=== PATIENT | female | born 1940 | race African-American/Black ===

== ENCOUNTER 2017-01-09 14:08 | Emergency (ER) | payer OTHER, MEDICARE ==
[2017-01-09 14:16] VITALS: PULSE 89; TEMP 97.9; BMI 25.7
--- NOTE | 2017-01-09 14:25 | PDOC ---
History of Present Illness <Emeli Brice - Last Filed: 01/09/17 15:29> - History of Present Illness Initial Comments: 01/09/17 14:51 "The patient is a 76 year old female, with a significant past medical history of hyperlipidemia, who presents to the emergency department s/p mechanical fall approximately 3-4 days ago. The patient reports she was getting out of bed when her left knee hit her bed post and she landed on her buttocks. Patient denies any changes in vision, headache, LOC, neck or back pain. Patient reports she was able to ambulate the first couple of days, but at a slower pace than normal and occasionally hopping due to left knee pain. Patient reports using a heat pad with mild relief. However, today, patient reports noting increased swelling and pain at the left knee. She describes her knee pain as sharp/ constant and rates it a 15/10. Patient reports her knee pain is exacerbated if she bares weight on her left leg. She reports she has noted left calf cramping s/p fall. Patient reports taking 2 baby aspirin today with minimal relief of pain. She denies any fever, chills, or dizziness. She denies any chest pain, shortness of breath, diaphoresis, or palpitations. She denies any recent travel or sick contacts. Patient is not on any blood thinners. Allergies: NKDA Past Surgical History: None reported Social History: Non smoker. No ETOH or recreational drug use. PCP: Dr. Gregg " <Wolfgang Claire - Last Filed: 01/09/17 15:55> - General Chief Complaint: Injury Stated Complaint: LEFT KNEE PAIN Time Seen by Provider: 01/09/17 14:12 Past History <Emeli Brice - Last Filed: 01/09/17 15:29> - Past Medical History Anemia: No Asthma: No Cancer: No Cardiac Disorders: No CVA: No COPD: No CHF: No Dementia: No Diabetes: No GI Disorders: No Disorders: No HTN: No Hypercholesterolemia: Yes Kidney Stones: No Liver Disease: No Suicide Attempt (Hx): No Seizures: No Thyroid Disease: No - Surgical History Abdominal Surgery: No Appendectomy: No Cardiac Surgery: No Cholecystectomy: No Lung Surgery: No Neurologic Surgery: No Orthopedic Surgery: No - Reproductive History PID: No - Psycho/Social/Smoking Cessation Hx Anxiety: No Suicidal Ideation: No Smoking History: Never smoked Have you smoked in the past 12 months: No Information on smoking cessation initiated: No Hx Alcohol Use: No Drug/Substance Use Hx: No Substance Use Type: None Hx Substance Use Treatment: No <Wolfgang Claire - Last Filed: 01/09/17 15:55> - Past Medical History Allergies/Adverse Reactions: Allergies Allergy/AdvReac Type Severity Reaction Status Date / Time No Known Allergies Allergy Verified 01/09/17 14:12 Home Medications: Ambulatory Orders Aspirin Coated [Ecotrin -] 81 mg PO DAILY 03/11/15 Simvastatin [Zocor -] 40 mg PO HS 03/11/15 Review of Systems - Review of Systems Comments:: 01/09/17 14:52 "GENERAL/CONSTITUTIONAL: No fever or chills. No weakness. HEAD, EYES, EARS, NOSE AND THROAT: No change in vision. No ear pain or discharge. No sore throat. CARDIOVASCULAR: No chest pain or shortness of breath. RESPIRATORY: No cough, wheezing, or hemoptysis. GASTROINTESTINAL: No nausea, vomiting, diarrhea or constipation. GENITOURINARY: No dysuria, frequency, or change in urination. MUSCULOSKELETAL: Yes: left knee pain s/p fall with associated swelling. No other joint or muscle swelling or pain. No neck or back pain. SKIN: No rash NEUROLOGIC: No headache, vertigo, loss of consciousness, or change in strength/ sensation. ENDOCRINE: No increased thirst. No abnormal weight change. HEMATOLOGIC/LYMPHATIC: No anemia, easy bleeding, or history of blood clots. ALLERGIC/IMMUNOLOGIC: No hives or skin allergy." <Wolfgang Claire - Last Filed: 01/09/17 15:55> *Physical Exam - Vital Signs Last Vital Signs Temp Pulse Resp BP Pulse Ox 97.9 F 89 18 149/66 99 01/09/17 14:11 01/09/17 14:11 01/09/17 14:11 01/09/17 14:11 01/09/17 14:11 <Emeli Brice - Last Filed: 01/09/17 15:29> - Vital Signs Last Vital Signs Temp Pulse Resp BP Pulse Ox 97.9 F 89 18 0/0 01/09/17 14:11 01/09/17 14:11 01/09/17 14:11 01/09/17 14:11 - Physical Exam Comments: 01/09/17 14:52 "GENERAL: Awake, alert, and fully oriented, in no acute distress HEAD: No signs of trauma EYES: PERRLA, EOMI, sclera anicteric, conjunctiva clear ENT: Auricles normal inspection, hearing grossly normal, nares patent, oropharynx clear without exudates. Moist mucosa NECK: Normal ROM, supple, no lymphadenopathy, JVD, or masses LUNGS: Breath sounds equal, clear to auscultation bilaterally. No wheezes, and no crackles HEART: Regular rate and rhythm, normal S1 and S2, no murmurs, rubs or gallops ABDOMEN: Soft, nontender, normoactive bowel sounds. No guarding, no rebound. No masses EXTREMITIES: Left knee with large joint effusion. Full passive range of motion. Active range of motion limited due to pain. Tenderness over the left patella. Negative anterior drawer test. Distal pulses intact. No clubbing or cyanosis. No cords, erythema, or tenderness NEUROLOGICAL: Cranial nerves II through XII grossly intact. Normal speech, normal gait SKIN: Warm, Dry, normal turgor, no rashes or lesions noted." <Wolfgang Claire - Last Filed: 01/09/17 15:55> ED Treatment Course - RADIOLOGY Radiograph Interpretation: 01/09/17 15:30 EXAM: Left tibia/fibula INTERPRETED BY: Dr. Corbin REVIEWED BY: Dr. Claire IMPRESSION: Left tibia/fibula: There is osteopenia. No acute fracture or dislocation is seen. There is a plantar calcaneal spur. Left knee: There is mild narrowing of the medial compartment. Tricompartmental osteophytes and intercondylar notch spurs are present. There are moderate to advanced degenerative changes of the patellofemoral joint and there is lateral tilt of the patella. No acute fracture or dislocation is seen. There is a moderate suprapatellar joint effusion. EXAM: Left tibia/fibula INTERPRETED BY: Dr. Corbin REVIEWED BY: Dr. Claire IMPRESSION: Left knee: There is mild narrowing of the medial compartment. Tricompartmental osteophytes and intercondylar notch spurs are present. There are moderate to advanced degenerative changes of the patellofemoral joint and there is lateral tilt of the patella. No acute fracture or dislocation is seen. There is a moderate suprapatellar joint effusion. - Medications Given in the ED: ED Medications Discontinued Medications Generic Name Dose Route Start Last Admin Trade Name Gisselle PRN Reason Stop Dose Admin Oxycodone/Acetaminophen 1 combo 01/09/17 14:19 01/09/17 14:27 Percocet 5/325 - PO 01/09/17 14:20 1 combo ONCE ONE Administration <Emeli Brice - Last Filed: 01/09/17 15:29> - RADIOLOGY Radiology Studies Ordered: Category Date Time Status KNEE 3 POS-LEFT [RAD] Stat Radiology 01/09/17 14:19 Ordered <Wolfgang Claire - Last Filed: 01/09/17 15:55> Medical Decision Making - Medical Decision Making 01/09/17 14:24 76 F with L knee pain and swelling s/p injury 3 days ago. Exam concerning for possible patella fx vs tibia fx. No other injuries found on exam. Although pt has asymmetric knee swelling, DVT is unlikely as pt has no h/o immobilization or travel, is not on estrogen supplements, no h/o DVT, and the swelling is localized to her knee where she injured it. - XR L knee, tib/fib - Percocet 01/09/17 15:46 XRs negative for acute fx. Pt with likely ligamentous injury to knee. - Knee immobilizer - orthopedics follow up <Wolfgang Claire - Last Filed: 01/09/17 15:55> *DC/Admit/Observation/Transfer - Attestations Scribe Attestion: 01/09/17 15:33 Documentation prepared by Emeli Brice, acting as veterinary medical officer for Wolfgang Claire MD. <Emeli Brice - Last Filed: 01/09/17 15:29> - Attestations Physician Attestion: 01/09/17 15:53 I, Dr. Wolfgang Claire MD, attest that this document has been prepared under my direction and personally reviewed by me in its entirety. I further attest, that it accurately reflects all work, treatment, procedures and medical decision -making performed by me. <Wolfgang Claire - Last Filed: 01/09/17 15:55> Diagnosis at time of Disposition: Knee pain - Discharge Dispostion Disposition: HOME Condition at time of disposition: Fair - Referrals Referrals: Wolfgang Lynn MD [Staff Physician] - - Patient Instructions Printed Discharge Instructions: DI for Knee Pain Additional Instructions: Keep your knee in the knee immobilizer until you are able to see an orthopedic surgeon. Ask your primary doctor for a referral, or call the number provided to make an appointment with our orthopedics clinic. Take tylenol or motrin as needed for pain. If you experience worsening pain, swelling, or any other concerning symptoms, return to the ER immediately.
[2017-01-09 14:34] VITALS: BP 149/66
== END 2017-01-09 16:23 | disposition home or self-care (01) ==
LOC: FER 14:08
DX: M25.562 Pain in left knee (principal); W18.30XA Fall on same level, unspecified, initial encounter; Y93.89 Activity, other specified; Y92.003 Bedroom of unspecified non-institutional (private) residence as the place of occurrence of the external cause; E78.5 Hyperlipidemia, unspecified
CPT/HCPCS: 73562-TC-LT; 73590-TC-LT; 99282-25

== ENCOUNTER 2017-10-21 16:39 | Emergency (ER) | payer OTHER, MEDICARE ==
[2017-10-21 17:06] VITALS: BMI 24.9
[2017-10-21] MEDS ORDERED: FOLIC ACID INJECTION - 1 MG, THIAMINE HCL 100 MG, MULTIVIT INJECTION ADULT 10 ML in SOD... IVPB ONE (19:41)
--- NOTE | 2017-10-21 19:48 | PDOC ---
History of Present Illness - General Chief Complaint: Palpitations Stated Complaint: Palpitations Time Seen by Provider: 10/21/17 18:49 History Source: Patient Exam Limitations: No Limitations - History of Present Illness Initial Comments: 77 YOF with h/o EtOH use who p/w tremors, malaise, palpitations, lightheadedness , nausea, decreased appetite, and unsteadiness on her feet/difficulty walking worsening since last night. She stopped drinking alcohol two days ago. She went to see her primary doctor's clinic today, where Dr. Perry was filling in for patient's PCP Dr. Floyd), and was instructed to come to the ED for possible EtOH withdrawal. The patient denies any hallucinations, SI/HI, or other symptoms. She may want detox and rehab at [facility]. Past History - Past Medical History Allergies/Adverse Reactions: Allergies Allergy/AdvReac Type Severity Reaction Status Date / Time No Known Allergies Allergy Verified 10/21/17 17:07 Home Medications: Ambulatory Orders Aspirin Coated [Ecotrin -] 81 mg PO DAILY 03/11/15 Simvastatin [Zocor -] 40 mg PO HS 03/11/15 Anemia: No Asthma: No Cancer: No Cardiac Disorders: No CVA: No COPD: No CHF: No Dementia: No Diabetes: No GI Disorders: No Disorders: No HTN: No Hypercholesterolemia: Yes Kidney Stones: No Liver Disease: No Seizures: No Thyroid Disease: No - Surgical History Abdominal Surgery: No Appendectomy: No Cardiac Surgery: No Cholecystectomy: No Lung Surgery: No Neurologic Surgery: No Orthopedic Surgery: No - Reproductive History PID: No - Suicide/Smoking/Psychosocial Hx Smoking History: Never smoked Have you smoked in the past 12 months: No Information on smoking cessation initiated: No Hx Alcohol Use: No Drug/Substance Use Hx: No Substance Use Type: Alcohol Hx Substance Use Treatment: No Review of Systems - Review of Systems Able to Perform ROS?: Yes Constitutional: Yes: Loss of Appetite, Malaise. No: Chills, Fever, Unexplained wgt Loss HEENTM: No: Nose Congestion, Throat Pain Respiratory: No: Cough, Shortness of Breath Cardiac (ROS): Yes: Lightheadedness, Palpitations. No: Chest Pain, Syncope ABD/GI: Yes: Nausea, Poor Appetite. No: Constipated, Diarrhea, Vomiting : No: Burning, Dysuria Musculoskeletal: No: Back Pain, Neck Pain Integumentary: No: Bruising, Rash Neurological: Yes: Tremors, Unsteady Gait. No: Headache, Numbness, Tingling, Weakness Endocrine: No: Unexplained Weight Gain, Unexplained Weight Loss *Physical Exam - Vital Signs Last Vital Signs Temp Pulse Resp BP Pulse Ox 98 F 88 16 189/82 98 10/21/17 16:39 10/21/17 16:39 10/21/17 16:39 10/21/17 16:39 10/21/17 16:39 - Physical Exam General Appearance: Yes: Nourished, Appropriately Dressed, Other (mild distress , visibly tremulous, appears slightly uncomfortable but answering questions appropriately and able to participate in exam and follow commands) HEENT: positive: EOMI, MELIZA, Normal Voice, Hearing Grossly Normal, Other (dry mucous membranes). negative: Scleral Icterus (R), Scleral Icterus (L), Nasal Congestion Neck: positive: Trachea midline, Normal Thyroid, Supple. negative: Tender, Rigid Respiratory/Chest: positive: Lungs Clear, Normal Breath Sounds. negative: Respiratory Distress, Crackles, Rhonchi, Stridor, Wheezing Cardiovascular: positive: Regular Rhythm, Regular Rate, S1, S2. negative: Edema , JVD, Murmur Gastrointestinal/Abdominal: positive: Normal Bowel Sounds, Flat, Soft. negative : Tender, Organomegaly, Pulsatile Mass, Guarding Musculoskeletal: positive: Normal Inspection. negative: Decreased Range of Motion, Vertebral Tenderness Extremity: positive: Normal Capillary Refill, Normal Inspection, Normal Range of Motion. negative: Tender, Cyanosis Integumentary: positive: Normal Color, Dry, Warm. negative: Erythema, Rash, Bruising Neurologic: positive: dinker II-XII NML intact, Fully Oriented, Alert, Normal Mood/ Affect, Normal Response, Motor Strength 5/5, Finger to Nose (some difficulty d/ t tremors), Other (constant fine tremor, gait not tested). negative: EOM Palsy , Facial Droop, Numbness, Sensory Deficit Procedures - Joint Reduction Right Joint Reduction Site: right: Finger (4th finger) Pre-Procedure NV Exam: slightly decreased sensation fingertip Conscious Sedation: No Finger Block: 4th digit Reduction Attempts: 1 Anesthetic: 1% Lidocaine Amount (mL): 4 Procedure: Other (traction-countertraction) Complications: No Post Joint Reduction Film: joint reduced Immobilized: Yes (alyce tape) ED Treatment Course - LABORATORY CBC & Chemistry Diagram: 10/22/17 01:10 10/21/17 20:53 Medical Decision Making - Medical Decision Making 10/21/17 20:08 Pt with h/o heavy alcohol use p/w tremors, malaise, palpitations, nausea, decreased PO intake, c/w her prior EtOH withdrawal. Initial Vital Signs Temp Pulse Resp BP Pulse Ox 98 F 88 16 189/82 98 10/21/17 16:39 10/21/17 16:39 10/21/17 16:39 10/21/17 16:39 10/21/17 16:39 Exam: tremulous, +tongue fasciculations, fixed split S1, no truncal ataxia, otherwise normal exam but gait is not tested DDX IBNLT: withdrawal (w/wo seizures), DT, hepatic encephalopathy, intoxication , ICH, UGIB (can cause AMS), LGIB, SBP, metabolic derangement, coingestion, hepatorenal syndrome, hepatopulmonary syndrome, Wernickes encephalopathy, Korsakoff syndrome, trauma, etc. W/U ordered: CBCD CMP Mg Phos Troponin CK CKMB Folate B12 EKG CXR UA UCx TX ordered: Banana Bag 1 mg IV Ativan 25 mg Librium EKG: Reviewed; results as noted in ECG Review section. Laboratory Tests 10/21/17 10/21/17 10/21/17 20:53 21:04 21:04 WBC RBC Hgb Hct MCV MCH MCHC RDW Plt Count MPV Absolute Neuts (auto) Neutrophils % Lymphocytes % Monocytes % Eosinophils % Basophils % Nucleated RBC % Sodium 132 L Potassium 5.0 Chloride 94 L Carbon Dioxide 23 Anion Gap 15 BUN 12 Creatinine 0.7 Creat Clearance w eGFR > 60 Random Glucose 93 Calcium 9.2 Phosphorus 3.8 Magnesium 2.0 Total Bilirubin 0.5 AST 42 H ALT 36 Alkaline Phosphatase 69 Creatine Kinase 133 Troponin I 0.02 Total Protein 7.9 Albumin 4.0 Vitamin B12 Serum Folate TSH Urine Color Yellow Urine Appearance Slcloudy Urine pH 5.0 D Ur Specific [place] 1.018 Urine Protein 2+ H Urine Glucose (UA) Negative Urine Ketones 2+ H Urine Blood Negative Urine Nitrite Negative Urine Bilirubin Negative Urine Urobilinogen Negative Ur Leukocyte Esterase Negative Urine WBC (Auto) 10 Urine RBC (Auto) 3 Ur Epithelial Cells Rare Granular Casts 1 Urine Mucus Rare 10/21/17 10/22/17 21:04 01:10 WBC 9.7 RBC 3.94 Hgb 12.4 Hct 36.6 MCV 93.0 MCH 31.5 MCHC 33.8 RDW 14.2 Plt Count 252 MPV 7.2 L D Absolute Neuts (auto) 6.0 Neutrophils % 62.3 Lymphocytes % 17.9 Monocytes % 16.6 H Eosinophils % 2.4 Basophils % 0.8 Nucleated RBC % 0 Sodium Potassium Chloride Carbon Dioxide Anion Gap BUN Creatinine Creat Clearance w eGFR Random Glucose Calcium Phosphorus Magnesium Total Bilirubin AST ALT Alkaline Phosphatase Creatine Kinase Troponin I Total Protein Albumin Vitamin B12 701 Serum Folate 34 H TSH 1.02 Urine Color Urine Appearance Urine pH Ur Specific [place] Urine Protein Urine Glucose (UA) Urine Ketones Urine Blood Urine Nitrite Urine Bilirubin Urine Urobilinogen Ur Leukocyte Esterase Urine WBC (Auto) Urine RBC (Auto) Ur Epithelial Cells Granular Casts Urine Mucus Reassessment: Patient states feeling much better Repeat VS: DISCHARGE The Pt has gotten significant relief of symptoms with ED medications. Workup is not concerning for emergency-level pathology at this time. The Pt is appropriate for discharge and f/u with [facility]. The patient is instructed to go to [facility] for detox at 8 am to be admitted. They are comfortable with this plan and will also follow up with their PCP COLIN. Specific return precautions are discussed and they will come back to the ER if necessary. *DC/Admit/Observation/Transfer Diagnosis at time of Disposition: Alcohol withdrawal Qualifiers: Complication of substance-induced condition: uncomplicated Qualified Code(s): F10.230 - Alcohol dependence with withdrawal, uncomplicated - Discharge Dispostion Condition at time of disposition: Stable Decision to Admit order: No - Referrals Referrals: Cindy Sanderson MD [Primary Care Provider] - - Patient Instructions Additional Instructions: You were seen in the ER for alcohol withdrawal symptoms. We did labs and found no new concerning findings. After our assessment, we do not believe you are having a medical emergency at this time, and we believe you are safe to go home. Please go to [facility] for detox this morning at 8 am. They will be able to observe you and monitor you for your withdrawal symptoms while you detox from alcohol. We are providing referral information for [facility] in this packet. Please also follow up with your regular PCP doctor in 1-3 days. Call their clinic as soon as possible, tell them you were seen in the ER, and tell them you need an appointment. If you have any new or worsening symptoms, please come back to the ER at any time (24 hours a day). If you are having severe or life threatening symptoms, or symptoms that make it unsafe to drive or have someone drive you, please call 911. Go to: [facility] [address] [place] [address] Opens at 8 am - Post Discharge Activity
--- NOTE | 2017-10-21 20:00 | PDOC ---
Attending Attestation - Resident Resident Name: Nydia Lilly - ED Attending Attestation I have performed the following: I have examined & evaluated the patient, The case was reviewed & discussed with the resident, I agree w/resident's findings & plan, Exceptions are as noted <Jose Dolan - Last Filed: 10/21/17 19:59> - HPI HPI: 10/21/17 20:26 The patient is a 77 year old female, with a significant past medical history of EtOH abuse hyperlipidemia, who presents to the emergency department with palpitations, nausea, malaise, and tremors. The patient went to her PMDs office for her symptoms and was told she may be withdrawing from alcohol and that she should present to the ED. She reports associated lightheadedness and unsteady gain. The patient reports that she has withdrawn from alcohol before but denies any history of rehab. She reports compliance with Venilifax (SNRI) She denies any hallucinations. Suicidal thoughts, and/or homicidal thoughts - Physicial Exam PE: 10/21/17 20:26 GENERAL: Well-appearing, well-nourished. No apparent distress. HEENT: Normocephalic, atraumatic. PERRL, EOM intact. CARDIOVASCULAR: (+) Fixed S1, Normal S2. Regular rate and rhythm. PULMONARY: Clear to auscultation bilaterally. ABDOMEN: Soft, non-distended, non-tender. EXTREMITIES: Normal ROM in all four extremities. No gross deformities. SKIN: Warm, dry. No rash NEUROLOGICAL: (+) Resting tremor (constant during neuro exam), Tongue fasciculation, Flaps , Some difficulty with finger to nose. Gait not tested. - Medical Decision Making 10/21/17 20:26 Documentation prepared by Clint Calix, acting as medical professionals for Jose Dolan DO. <Clint Calix - Last Filed: 10/21/17 20:26>
[2017-10-21] MEDS ORDERED: chlordiazePOXIDE HCL 25 MG CAPSULE PO ONE (20:03)
[2017-10-21] MEDS ORDERED: LORazepam 2 MG/ML SDV VIAL ONE (20:47)
[2017-10-21] MEDS ORDERED: chlordiazePOXIDE HCL 25 MG CAPSULE ONE (20:47)
[2017-10-21 21:35] LABS: URINE APPEARANCE SLCLOUDY; URINE BILIRUBIN NEGATIVE (<2.0 mg/dL); URINE COLOR YELLOW; URINE GLUCOSE (UA) NEGATIVE (NEGATIVE); URINE KETONE 2+ (NEGATIVE); URINE LEUK ESTERASE NEGATIVE (NEGATIVE); URINE NITRITE NEGATIVE (NEGATIVE); URINE PROTEIN 2+ (NEGATIVE); URINE UROBILINOGEN NEGATIVE mg/dL (0.2-1.0)
[2017-10-21 21:37] LABS: EPI CELLS RARE /HPF (FEW); GRANULAR CASTS 1 /lpf; URINE MUCUS RARE
[2017-10-22 00:44] LABS: ALK PHOS 69 U/L (45-117); ANION GAP 15 (8-16); BILIRUBIN,TOTAL 0.5 mg/dL (0.2-1.0); BLOOD UREA NITROGEN 12 mg/dL (7-18); CALCIUM 9.2 mg/dL (8.5-10.1); CHLORIDE 94 mmol/L (98-107); CO2 23 mmol/L (21-32); CREATININE 0.7 mg/dL (0.55-1.02); GLUCOSE,RANDOM 93 mg/dL (74-106); PHOSPHOROUS 3.8 mg/dL (2.5-4.9); SGPT/ALT 36 U/L (12-78); SODIUM 132 mmol/L (136-145); TOT PROT 7.9 g/dl (6.4-8.2)
[2017-10-22 00:46] LABS: SGOT/AST 42 U/L (15-37)
[2017-10-22 01:26] LABS: BASO % 0.8 % (0-2.0); EOS % 2.4 % (0-4.5); HEMATOCRIT 36.6 % (32.4-45.2); HEMOGLOBIN 12.4 GM/dL (10.7-15.3); LYMPH % 17.9 % (8-40); MCH 31.5 pg (25.7-33.7); MCHC 33.8 g/dl (32.0-36.0); MEAN PLT VOLUME 7.2 fl (7.5-11.1); MONO % 16.6 % (3.8-10.2); NEUT % 62.3 % (42.8-82.8); PLATELET COUNT 252 K/MM3 (134-434); RBC 3.94 M/mm3 (3.60-5.2); RDW 14.2 % (11.6-15.6); WHITE BLOOD COUNT 9.7 K/mm3 (4.0-10.0)
[2017-10-22] MEDS ORDERED: ACETAMINOPHEN 1000 MG/100 ML VIAL (NON FORMULARY) IVPB ONE (02:51)
[2017-10-22] MEDS ORDERED: ACETAMINOPHEN INJECTION 100 ML IVPB ONE (03:31)
[2017-10-22 04:54] VITALS: BP 166/85; PULSE 89; TEMP 98.5
--- NOTE | 2017-10-22 16:20 | EKG ---
Test Reason : Blood Pressure : / mmHG Vent. Rate : 091 BPM Atrial Rate : 091 BPM P-R Int : 150 ms QRS Dur : 078 ms QT Int : 384 ms P-R-T Axes : 051 -04 059 degrees QTc Int : 472 ms NORMAL SINUS RHYTHM NORMAL ECG NO PREVIOUS ECGS AVAILABLE Confirmed by FENG BLACKBURN MD ([id number]) on 10/22/2017 4:20:32 PM Referred By: Confirmed By:FENG BLACKBURN MD
== END 2017-10-22 04:57 | disposition home or self-care (01) ==
LOC: JER 16:39
PROC: 3E033GC Introduction of Other Therapeutic Substance into Peripheral Vein, Percutaneous Approach (ICD-10-PCS; principal; 2017-10-21)
PROC: 3E033NZ Introduction of Analgesics, Hypnotics, Sedatives into Peripheral Vein, Percutaneous Approach (ICD-10-PCS; 2017-10-21)
PROC: 3E033NZ Introduction of Analgesics, Hypnotics, Sedatives into Peripheral Vein, Percutaneous Approach (ICD-10-PCS; 2017-10-21)
DX: F10.230 Alcohol dependence with withdrawal, uncomplicated (principal)
CPT/HCPCS: 36415; 80053; 81003; 81015; 82550; 82607; 82746; 83735; 84100; 84443; 84484; 85025; 87086; 93005; 93010; 99285-25; J0131; J7030

== ENCOUNTER 2018-03-06 18:07 | Inpatient (IN) | payer OTHER, MEDICARE ==
[2018-03-06 19:01] VITALS: BMI 24.9
--- NOTE | 2018-03-06 20:08 | HP ---
CIWA Score Nausea/Vomitin Muscle Tremors: 4-Moderate,w/Arms Extend Anxiety: 2 Agitation: 2 Paroxysmal Sweats: 2 Orientation: 0-Oriented Tacttile Disturbances: 2-Mild Itch/Numbness/Burn Auditory Disturbances: 2-Mild Harshness/Frighten Visual Disturbances: 2-Mild Sensitivity Headache: 2-Mild CIWA-Ar Total Score: 20 - Admission Criteria [facility] Guidelines: Admission for Medically Managed Detox: Requires at least one of the followin. CIWA greater than 12 2. Seizures within the past 24 hours 3. Delirium tremens within the past 24 hours 4. Hallucinations within the past 24 hours 5. Acute intervention needed for co occurring medical disorder 6. Acute intervention needed for co occurring psychiatric disorder 7. Severe withdrawal that cannot be handled at a lower level of care (continued vomiting, continued diarrhea, abnormal vital signs) requiring intravenous medication and/or fluids 8. Admission ROS BHS - HPI Chief Complaint: DEPENDENT ON ETOH ONLY Allergies/Adverse Reactions: Allergies Allergy/AdvReac Type Severity Reaction Status Date / Time No Known Allergies Allergy Verified 10/21/17 17:07 History of Present Illness: THE PT. IS REQUESTING ADMISSION TO THE DETOX UNIT AND CAME FOR H AND PE Exam Limitations: No Limitations - Ebola screening Have you traveled outside of the country in the last 21 days: No Have you had contact with anyone from an Ebola affected area: No Have you been sick,other than usual withdrawal symptoms: No Do you have a fever: No - Review of Systems Constitutional: See HPI, Malaise, Weakness EENT: reports: See HPI Respiratory: reports: See HPI Cardiac: reports: See HPI GI: reports: See HPI, Nausea, Abdominal cramping : reports: No Symptoms Reported, See HPI Musculoskeletal: reports: See HPI, Muscle Pain, Muscle Weakness Integumentary: reports: See HPI, Sweating Neuro: reports: See HPI, Headache, Tremors, Weakness, Unsteady Gait Endocrine: reports: See HPI Hematology: reports: See HPI Psychiatric: reports: Judgement Intact, Orientated x3, Anxious, Depressed Patient History - Patient Medical History Hx Anemia: No Hx Asthma: No Hx Chronic Obstructive Pulmonary Disease (COPD): No Hx Cancer: No Hx Cardiac Disorders: No Hx Congestive Heart Failure: No Hx Hypertension: No Hx Hypercholesterolemia: Yes Hx Pacemaker: No HX Cerebrovascular Accident: No Hx Seizures: No Hx Dementia: No Hx Diabetes: No Hx Gastrointestinal Disorders: No Hx Liver Disease: No Hx Genitourinary Disorders: No Hx Sexually Transmitted Disorders: No Hx Renal Disease (ESRD): No Hx Thyroid Disease: No Hx Human Immunodeficiency Virus (HIV): No Hx Hepatitis C: No Hx Depression: No Hx Suicide Attempt: No Hx Bipolar Disorder: No Hx Schizophrenia: No - Patient Surgical History Past Surgical History: No Hx Neurologic Surgery: No Hx Cataract Extraction: No Hx Cardiac Surgery: No Hx Lung Surgery: No Hx Breast Surgery: No Hx Breast Biopsy: No Hx Abdominal Surgery: No Hx Appendectomy: No Hx Cholecystectomy: No Hx Genitourinary Surgery: No Hx Section: No Hx Orthopedic Surgery: No Anesthesia Reaction: No - PPD History Date: 03/13/15 - Reproductive History Patient is a Female of Child Bearing Age (11 -55 yrs old): No LMP comment: WHEN SHE WAS 48 YRS. OLD Patient : No - Smoking Cessation Smoking history: Former smoker Have you smoked in the past 12 months: No If you are a former smoker, when did you quit?: Hx Chewing Tobacco Use: No Initiated information on smoking cessation: No 'Breaking Loose' booklet given: 03/06/18 - Substance & Tx. History Hx Alcohol Use: Yes Hx Substance Use: No Substance Use Type: Alcohol Hx Substance Use Treatment: Yes - Substances Abused Alcohol Route: Oral Frequency: Daily Amount used: BEER 1-2 PINTS/LIQUOR 1-2 PINTS/D Age of first use: 10 Date of Last Use: 03/06/18 Family Disease History - Family Disease History Family Disease History: Heart Disease: Brother, Other: Father (ALCOHOL) Admission Physical Exam S - Vital Signs Vital Signs: Vital Signs - 24 hr 03/06/18 18:45 Temperature 96.5 F L Pulse Rate 87 Respiratory 18 Rate Blood Pressure 135/80 - Physical General Appearance: Yes: No Apparent Distress, Appropriately Dressed, Alcohol on Breath, Thin, Tremorous, Sweating, Anxious HEENTM: Yes: Hearing grossly Normal, Normocephalic, Normal Voice, MELIZA, Pharynx Normal Respiratory: Yes: Chest Non-Tender, Lungs Clear, Normal Breath Sounds, No Accessory Muscle Use, Respiratory Distress Neck: Yes: No masses,lesions,Nodules, Supple, Trachea in good position Breast: Yes: Breast Exam Deferred, Axillae without masses Cardiology: Yes: Regular Rhythm, S1, S2, Tachycardia Abdominal: Yes: Normal Bowel Sounds, Non Tender, Flat Back: Yes: Decreased Range of Motion Musculoskeletal: Yes: Muscle Pain, Muscle weakness Neurological: Yes: dough catcher II-XII NML intact, Fully Oriented, Alert, Motor Strength 5/5, Normal Response, Depressed Affect Integumentary: Yes: Normal Color, Warm, Moist Lymphatic: Yes: Within Normal Limits - Diagnostic (1) Hypercholesteremia Current Visit: Yes Status: Chronic (2) Alcohol dependence with uncomplicated intoxication Current Visit: No Status: Chronic Cleared for Admission [facility] - Detox or Rehab [facility] Level of Care: Medically Managed Detox Regimen/Protocol: Librium [facility] Breath Alcohol Content Breath Alcohol Content: 0.002 Urine Pregancy Test - Result Urine Test Results: Negative- NO Line Present Urine Drug Screen - Results Drug Screen Negative: No Urine Drug Screen Results: BZO-Benzodiazepines
[2018-03-06] MEDS ORDERED: chlordiazePOXIDE HCL 25 MG CAPSULE PO PRN (20:12)
[2018-03-06] MEDS ORDERED: LOPERAMIDE HCL 2 MG CAPSULE PO PRN (20:12)
[2018-03-06] MEDS ORDERED: MAGNESIUM HYDROX 2400MG/30ML ORAL SUSPENSION 30 ML CUP PO PRN (20:12)
[2018-03-06] MEDS ORDERED: chlordiazePOXIDE HCL 25 MG CAPSULE PO ONE (20:12)
[2018-03-06] MEDS ORDERED: MAG HYDROX/AL HYDROX/SIMETH 30 ML UNIT-DOSE CUP PO PRN (20:12)
[2018-03-06] MEDS ORDERED: P-EPHED 60MG/TRIPROLIDI 2.5MG TABLET PO PRN (20:12)
[2018-03-06] MEDS ORDERED: MAGNESIUM CITRATE 300 ML BOTTLE PO PRN (20:12)
[2018-03-06] MEDS ORDERED: IBUPROFEN 400 MG TABLET (FP) PO PRN (20:12)
[2018-03-06] MEDS ORDERED: MENTHOL/PHENOL 1 EACH UD MM PRN (20:12)
[2018-03-06] MEDS ORDERED: hydrOXYzine PAMOATE 25 MG CAPSULE (FP) PO PRN (20:12)
[2018-03-06] MEDS ORDERED: ACETAMINOPHEN 325 MG TABLET (FP) PO PRN (20:12)
[2018-03-06] MEDS ORDERED: guaiFENesin/D-METHORPHAN HB 10 ML UNIT-DOSE CUPS PO PRN (20:12)
[2018-03-06] MEDS ORDERED: MELATONIN 5 MG TABLETS PO PRN (22:00)
[2018-03-06] MEDS: chlordiazePOXIDE HCL 25 MG CAPSULE PO SCH (22:14)
[2018-03-06] MEDS: THIAMINE HCL 100 MG TABLET (FP) PO SCH (22:45)
[2018-03-07 01:52] LABS: URINE APPEARANCE SLCLOUDY; URINE BILIRUBIN NEGATIVE (<2.0 mg/dL); URINE COLOR YELLOW; URINE GLUCOSE (UA) NEGATIVE (NEGATIVE); URINE KETONE TRACE (NEGATIVE); URINE LEUK ESTERASE 1+ (NEGATIVE); URINE NITRITE NEGATIVE (NEGATIVE); URINE PROTEIN 2+ (NEGATIVE); URINE UROBILINOGEN NEGATIVE mg/dL (0.2-1.0)
[2018-03-07 01:58] LABS: EPI CELLS FEW /HPF (FEW); URINE BACTERIA FEW /hpf (NONE SEEN); URINE HYALINE CAST 3 /lpf; URINE MUCUS MANY
[2018-03-07] MEDS: chlordiazePOXIDE HCL 25 MG CAPSULE PO SCH ×4 (06:30→22:10)
[2018-03-07] MEDS: PRENATAL VITAMINS W/ FOLIC ACID TABLET (FP) PO SCH (10:27)
[2018-03-07 10:56] LABS: ALBUMIN 3.9 g/dl (3.4-5.0); ALK PHOS 67 U/L (45-117); ANION GAP 11 MMOL/L (8-16); BLOOD UREA NITROGEN 7 mg/dL (7-18); CALCIUM 8.9 mg/dL (8.5-10.1); CHLORIDE 96 mmol/L (98-107); CO2 29 mmol/L (21-32); GLUCOSE,RANDOM 97 mg/dL (74-106); POTASSIUM 3.4 mmol/L (3.5-5.1); SGOT/AST 266 U/L (15-37); SGPT/ALT 209 U/L (13-61); SODIUM 137 mmol/L (136-145); TOT PROT 7.3 g/dl (6.4-8.2)
[2018-03-07 11:09] LABS: BASO % 1.2 % (0-2.0); EOS % 4.9 % (0-4.5); HEMOGLOBIN 13.4 GM/dL (10.7-15.3); LYMPH % 22.5 % (8-40); MCH 30.6 pg (25.7-33.7); MCHC 33.5 g/dl (32.0-36.0); MEAN CELL VOLUME 91.5 fl (80-96); MEAN PLT VOLUME 9.4 fl (7.5-11.1); MONO % 11.6 % (3.8-10.2); NEUT % 59.8 % (42.8-82.8); PLATELET COUNT 155 K/MM3 (134-434); RBC 4.37 M/mm3 (3.60-5.2); RDW 14.3 % (11.6-15.6)
--- NOTE | 2018-03-07 11:23 | PN ---
S CIWA - CIWA Score Nausea/Vomitin-Mild Nausea/No Vomiting Muscle Tremors: 4-Moderate,w/Arms Extend Anxiety: 3 Agitation: 3 Paroxysmal Sweats: 1-Minimal Palms Moist Orientation: 1-Uncertain about Date Tacttile Disturbances: 1-Very Mild Itch/Numbness Auditory Disturbances: 1-Very Mild Visual Disturbances: 0-None Headache: 1-Very Mild CIWA-Ar Total Score: 16 BHS Progress Note (SOAP) Subjective: tremor sweat weakness of the legs ambulating with wheelchair reported has long history of anxiety requests to discuss anxiety with psychiatrist Objective: 03/07/18 11:27 Vital Signs Temperature 97.7 F 03/07/18 09:30 Pulse Rate 76 03/07/18 09:30 Respiratory Rate 16 03/07/18 09:30 Blood Pressure 127/78 03/07/18 09:30 O2 Sat by Pulse Oximetry (%) Laboratory Last Values WBC 7.0 K/mm3 (4.0-10.0) 03/07/18 07:30 RBC 4.37 M/mm3 (3.60-5.2) 03/07/18 07:30 Hgb 13.4 GM/dL (10.7-15.3) 03/07/18 07:30 Hct 40.0 % (32.4-45.2) 03/07/18 07:30 MCV 91.5 fl (80-96) 03/07/18 07:30 MCH 30.6 pg (25.7-33.7) 03/07/18 07:30 MCHC 33.5 g/dl (32.0-36.0) 03/07/18 07:30 RDW 14.3 % (11.6-15.6) 03/07/18 07:30 Plt Count 155 K/MM3 (134-434) D 03/07/18 07:30 MPV 9.4 fl (7.5-11.1) D 03/07/18 07:30 Absolute Neuts (auto) 4.2 K/mm3 (1.5-8.0) 03/07/18 07:30 Neutrophils % 59.8 % (42.8-82.8) 03/07/18 07:30 Lymphocytes % 22.5 % (8-40) D 03/07/18 07:30 Monocytes % 11.6 % (3.8-10.2) H 03/07/18 07:30 Eosinophils % 4.9 % (0-4.5) H D 03/07/18 07:30 Basophils % 1.2 % (0-2.0) 03/07/18 07:30 Nucleated RBC % 0 % (0-0) 03/07/18 07:30 Sodium 137 mmol/L (136-145) 03/07/18 07:30 Potassium 3.4 mmol/L (3.5-5.1) L 03/07/18 07:30 Chloride 96 mmol/L (98-107) L 03/07/18 07:30 Carbon Dioxide 29 mmol/L (21-32) 03/07/18 07:30 Anion Gap 11 MMOL/L (8-16) 03/07/18 07:30 BUN 7 mg/dL (7-18) 03/07/18 07:30 Creatinine 1.0 mg/dL (0.55-1.3) 03/07/18 07:30 Creat Clearance w eGFR 53.48 (>60) 03/07/18 07:30 Random Glucose 97 mg/dL (74-106) 03/07/18 07:30 Calcium 8.9 mg/dL (8.5-10.1) 03/07/18 07:30 Total Bilirubin 1.0 mg/dL (0.2-1) 03/07/18 07:30 AST 266 U/L (15-37) H 03/07/18 07:30 ALT 209 U/L (13-61) H 03/07/18 07:30 Alkaline Phosphatase 67 U/L (45-117) 03/07/18 07:30 Total Protein 7.3 g/dl (6.4-8.2) 03/07/18 07:30 Albumin 3.9 g/dl (3.4-5.0) 03/07/18 07:30 Urine Color Yellow 03/06/18 23:31 Urine Appearance Slcloudy 03/06/18 23:31 Urine pH 6.0 (5.0-8.0) 03/06/18 23:31 Ur Specific [place] 1.015 (1.010-1.035) 03/06/18 23:31 Urine Protein 2+ (NEGATIVE) H 03/06/18 23:31 Urine Glucose (UA) Negative (NEGATIVE) 03/06/18 23:31 Urine Ketones Trace (NEGATIVE) H 03/06/18 23:31 Urine Blood 1+ (NEGATIVE) H 03/06/18 23:31 Urine Nitrite Negative (NEGATIVE) 03/06/18 23:31 Urine Bilirubin Negative (<2.0 mg/dL) 03/06/18 23:31 Urine Urobilinogen Negative mg/dL (0.2-1.0) 03/06/18 23:31 Ur Leukocyte Esterase 1+ (NEGATIVE) H 03/06/18 23:31 Urine WBC (Auto) 59 /hpf (3-5) 03/06/18 23:31 Urine RBC (Auto) 4 /hpf (0-3) 03/06/18 23:31 Ur Epithelial Cells Few /HPF (FEW) 03/06/18 23:31 Urine Bacteria Few /hpf (NONE SEEN) 03/06/18 23:31 Hyaline Casts 3 /lpf 03/06/18 23:31 Urine Mucus Many 03/06/18 23:31 RPR Titer Nonreactive (NONREACTIVE) 03/07/18 07:30 lab noted uti low K+ 03/07/18 11:28 Assessment: 03/07/18 11:30 withdrawal sx Plan: continue detox
[2018-03-07] MEDS ORDERED: SULFAMETHOXAZOLE/TRIMETHOPRIM 800MG/160MG D.S. TABLET PO SCH (11:30)
[2018-03-07] MEDS ORDERED: ONDANSETRON *ODT* 4 MG TABLET SL ONE (12:09)
[2018-03-07] MEDS: POTASSIUM CHLORIDE TABS 20 MEQ TABLET.ER (FP) PO SCH (13:31)
[2018-03-07] MEDS: SULFAMETHOXAZOLE/TRIMETHOPRIM 800MG/160MG D.S. TABLET PO SCH (22:10)
[2018-03-07] MEDS: THIAMINE HCL 100 MG TABLET (FP) PO SCH (22:10)
[2018-03-08] MEDS: chlordiazePOXIDE HCL 25 MG CAPSULE PO SCH ×3 (05:53→22:36)
--- NOTE | 2018-03-08 07:31 | CONSULT ---
[facility] Psychiatric Consult - Data Date of interview: 03/08/18 Admission source: [facility] Identifying data: This is 77 years old female, mother of three, living [facility], on SSI/SSD support, with psychiatric hospitalization history, chronic alcoholic,. reporting withdrawal symptoms and seekign detox from Alcohol. Substance Abuse History: Smoking history: Former smoker. Have you smoked in the past 12 months: No. If you are a former smoker, when did you quit?: 1950' S. Hx Chewing Tobacco Use: No. Initiated information on smoking cessation: No. 'Breaking Loose' booklet given: 03/06/18. - Substance & Tx. History. Hx Alcohol Use: Yes. Hx Substance Use: No. Substance Use Type: Alcohol. Hx Substance Use Treatment: Yes. - Substances Abused. Alcohol. Route: Oral. Frequency: Daily. Amount used: BEER 1-2 PINTS/LIQUOR 1-2 PINTS/D. Age of first use: 10. Date of Last Use: 03/06/18 Medical History: Hyoercholesterolemia, Knee pain, denies other significant medical issues Psychiatric History: Patient reportsw anxiety, depresion and insomnia, reports psychiatric admission on 2016 at [facility], reports takign prior to admission:'. Seroquel 50mg po bid. Denies suicidal, homicidal history. Physical/Sexual Abuse/Trauma History: Denies Additional Comment: Seroquel 50mg po bid Psychiatric Findings - Problem List ([place] 1, 2,3) (1) Hypercholesteremia Current Visit: Yes Status: Chronic (2) Alcohol withdrawal Current Visit: No Status: Acute Qualifiers: Complication of substance-induced condition: uncomplicated Qualified Code(s ): F10.230 - Alcohol dependence with withdrawal, uncomplicated (3) Knee pain Current Visit: No Status: Acute (4) Alcohol dependence with uncomplicated intoxication Current Visit: No Status: Chronic - Initial Treatment Plan Initial Treatment Plan: Seroquel 50mg po bid
--- NOTE | 2018-03-08 10:06 | PN ---
S CIWA - CIWA Score Nausea/Vomitin-Mild Nausea/No Vomiting Muscle Tremors: 4-Moderate,w/Arms Extend Anxiety: 1-Mildly Anxious Agitation: 2 Paroxysmal Sweats: 1-Minimal Palms Moist Orientation: 0-Oriented Tacttile Disturbances: 1-Very Mild Itch/Numbness Auditory Disturbances: 1-Very Mild Visual Disturbances: 0-None Headache: 1-Very Mild CIWA-Ar Total Score: 12 BHS Progress Note (SOAP) Subjective: tremor sweat anxiety restlessness Objective: 03/08/18 10:08 Vital Signs Temperature 98.1 F 03/08/18 09:26 Pulse Rate 80 03/08/18 09:26 Respiratory Rate 16 03/08/18 09:26 Blood Pressure 110/60 03/08/18 09:26 O2 Sat by Pulse Oximetry (%) Laboratory Last Values WBC 7.0 K/mm3 (4.0-10.0) 03/07/18 07:30 RBC 4.37 M/mm3 (3.60-5.2) 03/07/18 07:30 Hgb 13.4 GM/dL (10.7-15.3) 03/07/18 07:30 Hct 40.0 % (32.4-45.2) 03/07/18 07:30 MCV 91.5 fl (80-96) 03/07/18 07:30 MCH 30.6 pg (25.7-33.7) 03/07/18 07:30 MCHC 33.5 g/dl (32.0-36.0) 03/07/18 07:30 RDW 14.3 % (11.6-15.6) 03/07/18 07:30 Plt Count 155 K/MM3 (134-434) D 03/07/18 07:30 MPV 9.4 fl (7.5-11.1) D 03/07/18 07:30 Absolute Neuts (auto) 4.2 K/mm3 (1.5-8.0) 03/07/18 07:30 Neutrophils % 59.8 % (42.8-82.8) 03/07/18 07:30 Lymphocytes % 22.5 % (8-40) D 03/07/18 07:30 Monocytes % 11.6 % (3.8-10.2) H 03/07/18 07:30 Eosinophils % 4.9 % (0-4.5) H D 03/07/18 07:30 Basophils % 1.2 % (0-2.0) 03/07/18 07:30 Nucleated RBC % 0 % (0-0) 03/07/18 07:30 Sodium 137 mmol/L (136-145) 03/07/18 07:30 Potassium 3.4 mmol/L (3.5-5.1) L 03/07/18 07:30 Chloride 96 mmol/L (98-107) L 03/07/18 07:30 Carbon Dioxide 29 mmol/L (21-32) 03/07/18 07:30 Anion Gap 11 MMOL/L (8-16) 03/07/18 07:30 BUN 7 mg/dL (7-18) 03/07/18 07:30 Creatinine 1.0 mg/dL (0.55-1.3) 03/07/18 07:30 Creat Clearance w eGFR 53.48 (>60) 03/07/18 07:30 Random Glucose 97 mg/dL (74-106) 03/07/18 07:30 Calcium 8.9 mg/dL (8.5-10.1) 03/07/18 07:30 Total Bilirubin 1.0 mg/dL (0.2-1) 03/07/18 07:30 AST 266 U/L (15-37) H 03/07/18 07:30 ALT 209 U/L (13-61) H 03/07/18 07:30 Alkaline Phosphatase 67 U/L (45-117) 03/07/18 07:30 Total Protein 7.3 g/dl (6.4-8.2) 03/07/18 07:30 Albumin 3.9 g/dl (3.4-5.0) 03/07/18 07:30 Urine Color Yellow 03/06/18 23:31 Urine Appearance Slcloudy 03/06/18 23:31 Urine pH 6.0 (5.0-8.0) 03/06/18 23:31 Ur Specific [place] 1.015 (1.010-1.035) 03/06/18 23:31 Urine Protein 2+ (NEGATIVE) H 03/06/18 23:31 Urine Glucose (UA) Negative (NEGATIVE) 11/10/18 23:31 Urine Ketones Trace (NEGATIVE) H 03/06/18 23:31 Urine Blood 1+ (NEGATIVE) H 03/06/18 23:31 Urine Nitrite Negative (NEGATIVE) 03/06/18 23:31 Urine Bilirubin Negative (<2.0 mg/dL) 03/06/18 23:31 Urine Urobilinogen Negative mg/dL (0.2-1.0) 03/06/18 23:31 Ur Leukocyte Esterase 1+ (NEGATIVE) H 03/06/18 23:31 Urine WBC (Auto) 59 /hpf (3-5) 03/06/18 23:31 Urine RBC (Auto) 4 /hpf (0-3) 03/06/18 23:31 Ur Epithelial Cells Few /HPF (FEW) 03/06/18 23:31 Urine Bacteria Few /hpf (NONE SEEN) 03/06/18 23:31 Hyaline Casts 3 /lpf 03/06/18 23:31 Urine Mucus Many 03/06/18 23:31 RPR Titer Nonreactive (NONREACTIVE) 03/07/18 07:30 03/08/18 10:10 lab noted low K+ + supplement uti + ua Assessment: 03/08/18 10:11 withdrawal sx Plan: continue detox K+ repeat pending ast alt repeat
[2018-03-08] MEDS: POTASSIUM CHLORIDE TABS 20 MEQ TABLET.ER (FP) PO SCH (10:18)
[2018-03-08] MEDS: SULFAMETHOXAZOLE/TRIMETHOPRIM 800MG/160MG D.S. TABLET PO SCH ×2 (10:18→22:36)
[2018-03-08] MEDS: QUEtiapine FUMARATE 50 MG TABLET PO SCH ×2 (10:18→22:36)
[2018-03-08] MEDS: PRENATAL VITAMINS W/ FOLIC ACID TABLET (FP) PO SCH (10:18)
[2018-03-08] MEDS: THIAMINE HCL 100 MG TABLET (FP) PO SCH (22:38)
[2018-03-08] MEDS: chlordiazePOXIDE 5 MG CAPSULE PO SCH (22:38)
[2018-03-09] MEDS: chlordiazePOXIDE 5 MG CAPSULE PO SCH ×3 (05:23→17:32)
[2018-03-09 09:56] LABS: SGOT/AST 164 U/L (15-37); SGPT/ALT 164 U/L (13-61)
[2018-03-09] MEDS: POTASSIUM CHLORIDE TABS 20 MEQ TABLET.ER (FP) PO SCH (10:12)
[2018-03-09] MEDS: PRENATAL VITAMINS W/ FOLIC ACID TABLET (FP) PO SCH (10:12)
[2018-03-09] MEDS: QUEtiapine FUMARATE 50 MG TABLET PO SCH ×2 (10:12→22:31)
[2018-03-09] MEDS: SULFAMETHOXAZOLE/TRIMETHOPRIM 800MG/160MG D.S. TABLET PO SCH ×2 (10:12→22:31)
--- NOTE | 2018-03-09 10:40 | PN ---
S Progress Note (SOAP) Subjective: feeling better no tremor less sweat no gi distress sleep better at night social with peers in day room Objective: 03/09/18 10:38 Vital Signs Temperature 98.2 F 03/09/18 09:07 Pulse Rate 87 03/09/18 09:07 Respiratory Rate 18 03/09/18 09:07 Blood Pressure 109/82 03/09/18 09:07 O2 Sat by Pulse Oximetry (%) Laboratory Last Values WBC 7.0 K/mm3 (4.0-10.0) 03/07/18 07:30 RBC 4.37 M/mm3 (3.60-5.2) 03/07/18 07:30 Hgb 13.4 GM/dL (10.7-15.3) 03/07/18 07:30 Hct 40.0 % (32.4-45.2) 03/07/18 07:30 MCV 91.5 fl (80-96) 03/07/18 07:30 MCH 30.6 pg (25.7-33.7) 03/07/18 07:30 MCHC 33.5 g/dl (32.0-36.0) 03/07/18 07:30 RDW 14.3 % (11.6-15.6) 03/07/18 07:30 Plt Count 155 K/MM3 (134-434) D 03/07/18 07:30 MPV 9.4 fl (7.5-11.1) D 03/07/18 07:30 Absolute Neuts (auto) 4.2 K/mm3 (1.5-8.0) 03/07/18 07:30 Neutrophils % 59.8 % (42.8-82.8) 03/07/18 07:30 Lymphocytes % 22.5 % (8-40) D 03/07/18 07:30 Monocytes % 11.6 % (3.8-10.2) H 03/07/18 07:30 Eosinophils % 4.9 % (0-4.5) H D 03/07/18 07:30 Basophils % 1.2 % (0-2.0) 03/07/18 07:30 Nucleated RBC % 0 % (0-0) 03/07/18 07:30 Sodium 137 mmol/L (136-145) 03/07/18 07:30 Potassium 3.7 mmol/L (3.5-5.1) 03/08/18 07:10 Chloride 96 mmol/L (98-107) L 03/07/18 07:30 Carbon Dioxide 29 mmol/L (21-32) 03/07/18 07:30 Anion Gap 11 MMOL/L (8-16) 03/07/18 07:30 BUN 7 mg/dL (7-18) 03/07/18 07:30 Creatinine 1.0 mg/dL (0.55-1.3) 03/07/18 07:30 Creat Clearance w eGFR 53.48 (>60) 03/07/18 07:30 Random Glucose 97 mg/dL (74-106) 03/07/18 07:30 Calcium 8.9 mg/dL (8.5-10.1) 03/07/18 07:30 Total Bilirubin 1.0 mg/dL (0.2-1) 03/07/18 07:30 AST 164 U/L (15-37) H 03/09/18 07:00 ALT 164 U/L (13-61) H 03/09/18 07:00 Alkaline Phosphatase 67 U/L (45-117) 03/07/18 07:30 Total Protein 7.3 g/dl (6.4-8.2) 03/07/18 07:30 Albumin 3.9 g/dl (3.4-5.0) 03/07/18 07:30 Urine Color Yellow 03/06/18 23:31 Urine Appearance Slcloudy 03/06/18 23:31 Urine pH 6.0 (5.0-8.0) 03/06/18 23:31 Ur Specific [place] 1.015 (1.010-1.035) 03/06/18 23:31 Urine Protein 2+ (NEGATIVE) H 03/06/18 23:31 Urine Glucose (UA) Negative (NEGATIVE) 03/06/18 23:31 Urine Ketones Trace (NEGATIVE) H 03/06/18 23:31 Urine Blood 1+ (NEGATIVE) H 03/06/18 23:31 Urine Nitrite Negative (NEGATIVE) 03/06/18 23:31 Urine Bilirubin Negative (<2.0 mg/dL) 03/06/18 23:31 Urine Urobilinogen Negative mg/dL (0.2-1.0) 03/06/18 23:31 Ur Leukocyte Esterase 1+ (NEGATIVE) H 03/06/18 23:31 Urine WBC (Auto) 59 /hpf (3-5) 03/06/18 23:31 Urine RBC (Auto) 4 /hpf (0-3) 03/06/18 23:31 Ur Epithelial Cells Few /HPF (FEW) 03/06/18 23:31 Urine Bacteria Few /hpf (NONE SEEN) 03/06/18 23:31 Hyaline Casts 3 /lpf 03/06/18 23:31 Urine Mucus Many 03/06/18 23:31 RPR Titer Nonreactive (NONREACTIVE) 03/07/18 07:30 lab noted discontinue potassium supplement discuss K+ rich food Assessment: 03/09/18 10:39 mild withdrawal sx 03/09/18 10:39 uti Plan: medically supervised detox continue bactrim ds
[2018-03-09] MEDS: THIAMINE HCL 100 MG TABLET (FP) PO SCH (22:31)
[2018-03-09] MEDS: chlordiazePOXIDE HCL 10 MG CAPSULE PO SCH (22:31)
[2018-03-10] MEDS: chlordiazePOXIDE HCL 10 MG CAPSULE PO SCH (05:25)
--- NOTE | 2018-03-10 08:34 | DS ---
[facility] Detox Discharge Summary Admission Date: 03/06/18 Discharge Date: 03/10/18 - History Present History: Alcohol Dependence - Physical Exam Results Vital Signs: Vital Signs Temperature 98.1 F 03/10/18 06:00 Pulse Rate 75 03/10/18 06:00 Respiratory Rate 18 03/10/18 06:00 Blood Pressure 146/76 03/10/18 06:00 O2 Sat by Pulse Oximetry (%) - Treatment Hospital Course: Detox Protocol Followed, Detoxed Safely, Responded well, Discharged Condition Good, Rehab Referral Accepted - Medication Discharge Medications: Ambulatory Orders Aspirin Coated [Ecotrin -] 81 mg PO DAILY 03/11/15 Quetiapine Fumarate [Seroquel -] 50 mg PO BID #60 tablet 03/08/18 Rosuvastatin [Crestor -] 20 mg PO DAILY #14 tablet 03/09/18 Sulfamethoxazole/Trimethoprim [Bactrim DS -] 1 each PO BID #7 tablet 03/09/18 - Diagnosis (1) Hypercholesteremia Current Visit: Yes Status: Chronic (2) Knee pain Current Visit: No Status: Acute (3) Alcohol dependence with uncomplicated intoxication Current Visit: Yes Status: Chronic - AMA Did Patient Leave Against Medical Advice: No (going home. spouse will pick her up. pt decline referral)
[2018-03-10 09:55] VITALS: BP 103/54; PULSE 67; TEMP 97.5
== END 2018-03-10 08:51 | disposition home or self-care (01) | DRG 897 ==
LOC: YASAS 18:07 → Y6N 20:40
PROC: HZ2ZZZZ Detoxification Services for Substance Abuse Treatment (ICD-10-PCS; principal; 2018-03-06)
DX: F10.230 Alcohol dependence with withdrawal, uncomplicated (principal); N39.0 Urinary tract infection, site not specified; F10.220 Alcohol dependence with intoxication, uncomplicated; E78.00 Pure hypercholesterolemia, unspecified; R00.0 Tachycardia, unspecified
CPT/HCPCS: 36415; 80053; 81003; 81015; 84132; 84450; 84460; 85025; 86593; Q0162